=== PATIENT | male | born 1985 | race Caucasian/White ===

== ENCOUNTER → 2017-01-17 | Day surgery (SDC) | payer OTHER ==
[~2017-01-17] VITALS: Ht 180.3 cm; Wt 107.0 kg
[~2017-01-17] MED LIST: 0.9% Sodium Chloride 1,000 ML IV SCH; ALBU8.5H2 INHALATION; CALC500T9 PO; KEN25CR EXT; Sodium Chloride LOK Flush 10 mL Syringe IV PRN; fentaNYL-PF 50 mCg/mL 2 mL Inj IVPUSH PRN
[2017-01-17 09:15] VITALS: BP 127/81; PULSE 74; RESP 16; O2SAT 97
[2017-01-17 11:43] VITALS: BP 104/67; PULSE 71; RESP 14; O2SAT 95
[2017-01-17 11:52] VITALS: BP 106/66; PULSE 77; RESP 14; O2SAT 94
[2017-01-17 12:02] VITALS: BP 117/69; PULSE 83; RESP 16; O2SAT 96
--- NOTE | 2017-01-17 13:27 | ENDO ---
[address] [address] ENDOSCOPY PROCEDURE PATIENT: PACO SELLERS : 1985 MR#: [id number] ADMIT: 01/17/2017 JOB ID: [id number] DATE OF SERVICE: 01/17/2017 TYPE OF OPERATION: Colonoscopy. PREOPERATIVE DIAGNOSIS: Rectal bleeding. POSTOPERATIVE DIAGNOSIS: Normal colonoscopy. ANESTHESIA: 1. Fentanyl 100 mcg. 2. Versed 7 mg IV administered. COMPLICATIONS: None. BLOOD LOSS: Minimal. DESCRIPTION OF PROCEDURE: After risks and benefits explained to the patient, informed consent was obtained. After anesthesia administered, colonoscope was then inserted from the rectum to cecum. Mucosa carefully examined. Prep of the patient was excellent. After the procedure was done, the scope withdrawn, procedure terminated. FINDINGS: Upon inspection of the anus, no masses, hemorrhoids, ulcers, fissures that were seen throughout the entire examination. No polyps, masses or lesions. Retroflexion was normal. IMPRESSION: Normal colonoscopy. RECOMMENDATIONS: Follow up in GI clinic as needed.
== END | disposition home or self-care (01) ==
LOC: END 00:43
PROVIDERS: ATTEND Internal Medicine Gastroenterology
DX: K62.5 Hemorrhage of anus and rectum (principal); K64.8 Other hemorrhoids; J45.909 Unspecified asthma, uncomplicated; Z85.47 Personal history of malignant neoplasm of testis; Z86.69 Personal history of other diseases of the nervous system and sense organs
CPT/HCPCS: 45378; G0500; J2250; J3010; J7030